=== PATIENT | female | born 1990 | race Two or more races ===

== ENCOUNTER → 2020-11-13 | Outpatient (CLI) | payer OTHER | END | disposition home or self-care (01) | LOC: PPH VACUNA | DX: Z23 Encounter for immunization (principal) ==

== ENCOUNTER 2024-07-03 07:44 | Emergency (ER) | payer OTHER ==
[~2024-07-03] VITALS: Ht 167.6 cm; Wt 147.4 kg
[2024-07-03 13:27] LABS: URINE APPEARANCE Clear; URINE BILIRRUBIN Negative (NEGATIVE); URINE BLOOD Small; URINE COLOR Dark Yellow; URINE GLUCOSE Negative (NEGATIVE); URINE KETONE Negative (NEGATIVE); URINE LEUKOCYTE Small; URINE NITRATE Positive; URINE PROTEIN Trace (NEGATIVE)
[2024-07-03 13:30] LABS: URINE BACTERIA 949.9 uL (0.0-1933); URINE EPITHELIAL CELLS 45.7 uL (0.0-38.8); URINE RBC 165.3 uL (0.0-20.8); URINE WBC 71.7 uL (0.0-23.2)
[2024-07-03 13:34] LABS: HEMATOCRIT 42.4 % (36.0-45.00); HEMOGLOBIN 14.3 g/dL (12.0-15.00); MEAN CELL VOLUME 86.6 fL (80.00-100.00); MEAN CORPUSCULAR HEMOGLOBIN 29.2 pg (27.00-32.0); MEAN CORPUSCULAR HGB CONC 33.8 g/dl (32.0-36.0); PLATELET COUNT 281 K/uL (150-450); RED BLOOD COUNT 4.89 M/uL (4.00-6.00); RED CELL DISTRIBUTION WIDTH 13.3 % (11.5-14.5)
[2024-07-03 13:55] LABS: URINE CAST 0.15 uL (0.0-1.40)
== END 2024-07-03 14:52 | disposition home or self-care (01) ==
LOC: ER 07:46
DX: N39.0 Urinary tract infection, site not specified (principal); Z91.013 Allergy to seafood

== ENCOUNTER 2025-03-30 07:40 | Emergency (ER) | payer OTHER ==
[~2025-03-30] VITALS: Ht 167.6 cm; Wt 126.6 kg
[2025-03-30 11:39] LABS: BASO % 0.6 % (0.1-1.2); EOS # 0.07 (0.04-0.54); EOS % 1.0 % (0.7-7.0); LYMPH # 1.70 (1.18-3.74); LYMPH % 24.9 % (19.3-53.1); MEAN PLATELET VOLUME 9.60 fl (9.4-12.4); MONO # 0.62 (0.24-0.82); MONO % 9.1 % (4.7-12.5); NEUT # 4.39 (1.56-6.13); NEUT % 64.1 % (34.0-71.1); RED CELL DISTRIBUTION WIDTH 12.4 % (11.6-14.4)
[2025-03-30 11:54] LABS: COVID-19 AG NEGATIVE (NEGATIVE)
== END 2025-03-30 08:27 | disposition home or self-care (01) ==
LOC: ER 07:40
PROVIDERS: Preventive Medicine Public Health & General Preventive Medicine
DX: B34.9 Viral infection, unspecified (principal); Z20.822 Contact with and (suspected) exposure to COVID-19; Z91.013 Allergy to seafood